=== PATIENT | male | born 1965 | race Caucasian/White ===

== ENCOUNTER 2020-11-23 16:25 | Day surgery (SDC) | payer OTHER ==
[~2020-11-23] VITALS: Ht 188 cm; Wt 90.9 kg
[2020-11-23 09:40] VITALS: BP 132/79; Ht 188 cm; Wt 90.9 kg
--- NOTE | 2020-11-23 16:06 | NUR ---
DC INSTRUCTIONS GIVEN TO PT/SPOUSE. STATES UNDERSTANDING. DC'D IV CATH FULLY INTACT.
--- NOTE | 2020-11-23 16:21 | NUR ---
PT LEFT UNIT VIA WC AT 1615
[~2020-11-23 16:25] MED LIST: CELEXA10 MG PO; EFFEXOR75 MG; FLOMAX0.4 MG PO; KLONOPIN1 MG PO; NORCO 7.5-3251 EACH GT; PERCOCET 10-321 EAC1
--- NOTE | 2020-11-23 22:14 | OP ---
PATIENT NAME: LM LEMUS MEDICAL RECORD: [id number] :67 LOCATION:[facility] ADMISSION DATE: SURGEON: WERNER WELLINGTON DO DATE OF OPERATION: 11/23/2020 PROCEDURE PERFORMED: Right knee arthroscopy with partial medial meniscectomy and abrasion chondroplasty of patella. PREOPERATIVE DIAGNOSIS: Right knee medial meniscal tear, moderate chondromalacia. 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 INDICATIONS: We reviewed the MRI with him as a clinic visits that he had a medial meniscal tear, horizontal tear and mild to moderate chondromalacia and told him that we will take a look and due to the chondromalacia may not be able to do a whole lot, but will be able to help with that meniscal tear with the meniscal symptoms he is having. He is aware of the risks including infection, bleeding, damage to nerve or vessel, need for further surgery, continued pain, need for total knee replacement if chondromalacia was bad, arthrofibrosis, blood clots and even and signed a consent. SURGEON: Werner Wellington DO. PROCEDURE: The patient was taken to the operative suite, laid in supine position, given general anesthetic and LMA was placed. The right lower extremity was then prepped and draped in sterile fashion. A timeout was performed and everyone was in agreement with correct side, site, patient and procedure. The patient was given 2 grams Ancef preoperatively. After the timeout was performed, we then made an incision over the lateral portal and the anterior knee down to the trocar into the knee. I then inspected the suprapatellar pouch, no loose body is seen. Then, I did see the grade IV chondromalacia of the patella. At that point, the trochlea inspected the medial and lateral gutters established a medial portal with an 18-gauge spinal needle 11-blade scalpel, trocar, and entered and then saw the grade IV chondromalacia rather than medial femoral condyle on the weightbearing portion and more on the lateral side and then also the medial meniscal tear. I trimmed out the medial meniscal tear to a stable point. I then also removed the loose cartilage on the medial femoral condyle. ACL was in good shape. Then, the knee, went to the lateral knee and then saw that he had grade IV chondromalacia in the tibia and then a large OCD lesion and no cartilage on the lateral femoral condyle. I then debrided that lateral area with a shaver and any loose cartilage and then went into the patellofemoral joint and did an abrasion chondroplasty of the patella and saw the trochlea again was denuded of any cartilage. I then turned the suction on and the water off removed the excess fluid from the knee, knee injected the portal sites with 0.25% Marcaine with epinephrine, approximately 4 mL in each. I then closed the portal sites with a 4-0 Monocryl in vertical fashion. I placed on Steri-Strips, Adaptic, 4 x 4, ABD, Webril, Tevin wrap and HOA hose stocking. He was awakened and taken to recovery in stable condition. ESTIMATED BLOOD LOSS: Minimal. COMPLICATIONS: None. 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
== END 2020-11-23 16:26 | disposition home or self-care (01) ==
LOC: D.OPS 16:25
PROVIDERS: ATTEND Orthopaedic Surgery
DX: S83.241A Other tear of medial meniscus, current injury, right knee, initial encounter (principal); X58.XXXA Exposure to other specified factors, initial encounter; S82.134A Nondisplaced fracture of medial condyle of right tibia, initial encounter for closed fracture; M94.261 Chondromalacia, right knee